=== PATIENT | male | born 1965 | race Caucasian/White ===

== ENCOUNTER 2016-08-21 14:20 | Emergency (ER) | payer BC, MEDICARE ==
[~2016-08-21 14:20] MED LIST: ACARBOSE50 MG PO; ADULT LOW DOSE81 M1 PO; ADVAIR 25028 BLISTE1 INH; ADVAIR 25028 BLISTE1 PO; ANDROGEL5 GM TD; ASPIR-LOW81 M1 PO; ASPIRIN325 M3 PO; ATORVASTATIN CA10 M1 PO; ATORVASTATIN CA10 MG PO; AXIRON90 ML TD; BACTRIM DS TAB1 EAC2 PO; BYSTOLIC5 M1 PO; BYSTOLIC5 MG PO; CAVERJECT IC; CHLORHEXIDINE FL1 M1 MC; CIALIS5 M1 PO; CIALIS5 MG PO; COMPAZINE5 M2 PO; DESONIDE15 GM TP; DILAUDID2 M1 PO; DONEPEZIL HCL10 M2 PO; DOXYCYCLINE HY100 M3 PO; EFFIENT10 MG/TAB PO; ENTERIC COATED325 MG PO; ESZOPICLONE2 MG PO; FISH OIL 1,0001 CA PO; FLOMAX0.4 M1 PO; GABAPENTIN300 MG PO; IRON1 TA1 PO; ISENTRESS400 M1 PO; ISENTRESS400 MG PO; LAMICTAL XR200 M1 PO; LAMOTRIGINE ER200 MG PO; LUNESTA1 MG PO; LUNESTA2 M1 PO; LUNESTA2 MG PO; LYRICA300 M1 PO; LYRICA75 MG PO; MELATONIN 1 MG1 EACH PO; MELATONIN5 M1 PO; METAMUCIL1 EACH PO; METAMUCIL660 GM PO; METAXALONE800 M1 PO; MIRALAX17 G2 PO; MIRALAX17 GM PO; MIRTAZAPINE15 M1 PO; MOBIC15 M2 PO; MS CONTIN15 M1 PO; MULTIVITAMIN1 TAB PO; NAPROSYN500 MG PO; NEXAVAR PO; NEXIUM40 M1 PO; NEXIUM40 MG PO; NUVIGIL250 M1 PO; OMEPRAZOLE20 M3 PO; OXANDRIN PO; OXANDROLONE PO; OXANDROLONE10 MG PO; OXAYDO7.5 MG PO; OXYCODONE HCL5 M1 PO; PEPCID20 M1 PO; PERCOCET 10-321 EACH PO; PERCOCET 5-3251 EACH PO; PERCOCET 5MG/AP1 TA2 PO; PERCOCET 7.5-31 EAC1 PO; PREDNISONE20 M1 PO; PROAIR HFA8.5 GM INH; PROAIR RESPICL90 MCG; REFRESH EYE DRO50 EA OP; SENOKOT-S TABL1 EACH PO; SF 5000 PLUS51 GM DT; SF 5000 PLUS51 GM TOP; SILDENAFIL20 M2 PO; SOMATROPIN SQ; TESTOSTERO200 MG/1 M IM; TESTOSTERO200 MG/11 IM; TOPROL XL25 M1 PO; TRAMADOL HCL50 M2 PO; TRUVADA 200 MG1 EAC1 PO; TRUVADA TABLET1 EACH PO; TYLENOL325 M2 PO; TYLENOL325 MG PO; UNISOM50 MG/30 M PO; VIAGRA100 M1 PO; VISTARIL25 M1 PO; VITAMIN D400 UNI1 PO; VOLTAREN100 G1 TOP; VOLTAREN100 G1 TP; ZESTRIL2.5 M1 PO; ZOFRAN4 MG PO; ZOFRAN8 M1 PO; ZOFRAN8 MG PO; [UNRECOGNIZED DRUG - OTHER]; [UNRECOGNIZED DRUG - OTHER]; [UNRECOGNIZED DRUG - OTHER] PO; [UNRECOGNIZED DRUG - OTHER] SC; [UNRECOGNIZED DRUG - OTHER] SQ; [UNRECOGNIZED DRUG - OTHER] SQ
[2016-08-21 15:18] LABS: BASO % 0.2 % (0-2); EOS % 0.2 % (0-7); HCT-HEMATOCRIT 31.4 % (36.0-53.5); HGB-HEMOGLOBIN 10.6 gm/dl (13.5-17.0); IMMATURE GRANULOCYTES ABSOLUTE 0.08 tho/cmm (0-0.03); IMMATURE GRANULOCYTES PERCENT 0.7 % (0-0.3); LYMPH % 16.7 % (20-45); MCH (MEAN CORPUSCULAR HGB) 30.2 pg (28.0-32.0); MCHC MEAN CORPUSCULAR HGB CONC 33.8 % (32.0-36.0); MCV (MEAN CELL VOLUME) 89.5 fl (82.0-96.0); MEAN PLATELET VOLUME 10.3 cmc (9.4-12.4); MONO % 13.1 % (0-12); MONOCYTE ABSOLUTE COUNT 1.6 tho/cmm (0.0-1.2); NEUTROPHIL ABSOLUTE COUNT 8.4 tho/cmm (1.6-8.0); NEUTROPHIL-AUTOMATED 8.4 tho/cmm (1.6-8.0); NEUTROPHILS % 69.1 % (40-80); PLATELET COUNT 456 tho/cmm (150-450); RED BLOOD COUNT 3.51 mil/cmm (4.40-5.70); RED CELL DISTRIBUTION WIDTH 17.2 % (12.4-16.4); WHITE BLOOD COUNT 12.1 tho/cmm (4.0-10.0)
[2016-08-21 15:29] LABS: ALB/GLOB RATIO 0.5 (0.8-2.0); ALBUMIN 2.7 g/dl (3.5-5.0); ALT/SGPT 39 U/L (12-78); ANION GAP 15 mmol/L (0-20); AST/SGOT 144 U/L (10-40); BILIRUBIN,TOTAL 0.9 mg/dl (0.0-1.5); BLOOD UREA NITROGEN 11 mg/dl (6-24); CALCIUM 8.7 mg/dl (8.5-10.5); CARBON DIOXIDE-VENOUS 24 mmol/L (22-32); CHLORIDE 102 mmol/l (96-110); CREATININE 1.05 mg/dl (0.60-1.30); GLUCOSE 123 mg/dL (70-110); SODIUM 137 mmol/L (135-145); eGFR VALUE FOR BLACK >90 mL/Min
[2016-08-21 15:32] LABS: ALKALINE PHOSPHATASE 523 U/L (33-138)
[2016-08-21 16:08] LABS: URINE LEUKOCYTE ESTERASE POSITIVE (NEG); URINE PROTEIN MODERATE (NEG); URINE SPECIFIC GRAVITY 1.015 (1.003-1.030)
[2016-08-21 16:11] LABS: URINE APPEARANCE CLEAR; URINE BILIRUBIN NEGATIVE (NEG); URINE BLOOD SMALL (NEG); URINE COLOR YELLOW; URINE GLUCOSE (UA) MODERATE (NEG); URINE KETONE NEGATIVE (NEG); URINE NITRITE NEGATIVE (NEG)
[2016-08-21 16:20] LABS: URINE EPITHELIAL CELLS 0-1 /[HPF] (0-10); URINE RBC 0 /[HPF] (0-5); URINE WBC 0-1 /[HPF] (0-5)
[2017-01-06] MEDS ORDERED: CIALIS5 M1 PO (19:12)
[2017-01-06] MEDS ORDERED: keytruda (19:12)
[2017-01-06] MEDS ORDERED: LOMOTIL 2.5-0.1 EACH PO (22:42)
== END 2016-08-21 18:47 ==
LOC: EDMED 14:20
PROVIDERS: Emergency Medicine
DX: R50.9 Fever, unspecified (principal); I25.10 Atherosclerotic heart disease of native coronary artery without angina pectoris; K21.9 Gastro-esophageal reflux disease without esophagitis; J45.909 Unspecified asthma, uncomplicated
CPT/HCPCS: J1170; J2405; Q9967

== ENCOUNTER 2016-10-03 06:07 | Day surgery (SDC) | payer BC, MEDICARE ==
[2016-10-03 07:35] LABS: BASO % 0.4 % (0-2); EOS % 2.2 % (0-7); EOSINOPHIL ABSOLUTE COUNT 0.2 tho/cmm (0.0-0.7); HCT-HEMATOCRIT 28.4 % (36.0-53.5); HGB-HEMOGLOBIN 9.7 gm/dl (13.5-17.0); IMMATURE GRANULOCYTES ABSOLUTE 0.12 tho/cmm (0-0.03); IMMATURE GRANULOCYTES PERCENT 1.3 % (0-0.3); LYMPH % 15.4 % (20-45); LYMPH ABSOLUTE COUNT 1.4 tho/cmm (0.8-4.5); MCH (MEAN CORPUSCULAR HGB) 30.3 pg (28.0-32.0); MCHC MEAN CORPUSCULAR HGB CONC 34.2 % (32.0-36.0); MCV (MEAN CELL VOLUME) 88.8 fl (82.0-96.0); MEAN PLATELET VOLUME 10.1 cmc (9.4-12.4); MONO % 10.6 % (0-12); NEUTROPHIL ABSOLUTE COUNT 6.3 tho/cmm (1.6-8.0); NEUTROPHIL-AUTOMATED 6.3 tho/cmm (1.6-8.0); NEUTROPHILS % 70.1 % (40-80); PLATELET COUNT 502 tho/cmm (150-450); RED CELL DISTRIBUTION WIDTH 19.3 % (12.4-16.4)
[2016-10-03 07:40] LABS: PROTHROMBIN TIME 11.9 SECONDS (9.0-13.6)
[2016-10-03 07:47] LABS: ANION GAP 14 mmol/L (0-20); BLOOD UREA NITROGEN 17 mg/dl (6-24); CALCIUM 9.1 mg/dl (8.5-10.5); CARBON DIOXIDE-VENOUS 27 mmol/L (22-32); CHLORIDE 100 mmol/l (96-110); GLUCOSE 93 mg/dL (70-110); POTASSIUM 4.5 mmol/L (3.7-5.1); SODIUM 136 mmol/L (135-145); eGFR VALUE FOR BLACK >90 mL/Min
[2017-01-06] MEDS ORDERED: keytruda (19:12)
[2017-01-06] MEDS ORDERED: CIALIS5 M1 PO (19:12)
[2017-01-06] MEDS ORDERED: LOMOTIL 2.5-0.1 EACH PO (22:42)
== END 2016-10-03 09:55 ==
LOC: US 06:07 → SHSC 06:23
PROVIDERS: Radiology Diagnostic Radiology
PROC: 0W9G3ZZ Drainage of Peritoneal Cavity, Percutaneous Approach (ICD-10-PCS; principal; 2016-10-03)
DX: R18.8 Other ascites (principal); J45.909 Unspecified asthma, uncomplicated; N40.0 Benign prostatic hyperplasia without lower urinary tract symptoms; K21.9 Gastro-esophageal reflux disease without esophagitis; I12.9 Hypertensive chronic kidney disease with stage 1 through stage 4 chronic kidney disease, or unspecified chronic kidney disease; N18.9 Chronic kidney disease, unspecified; I51.9 Heart disease, unspecified; F32.9 Major depressive disorder, single episode, unspecified; E88.1 Lipodystrophy, not elsewhere classified; G40.909 Epilepsy, unspecified, not intractable, without status epilepticus; B20 Human immunodeficiency virus [HIV] disease; E78.00 Pure hypercholesterolemia, unspecified; C22.9 Malignant neoplasm of liver, not specified as primary or secondary; Z79.82 Long term (current) use of aspirin; Z79.899 Other long term (current) drug therapy; Z88.1 Allergy status to other antibiotic agents; Z88.5 Allergy status to narcotic agent; Z88.8 Allergy status to other drugs, medicaments and biological substances; Z95.5 Presence of coronary angioplasty implant and graft; Z98.890 Other specified postprocedural states